=== PATIENT | male | born 1975 | race Caucasian/White ===

== ENCOUNTER 2017-04-18 09:26 | Emergency (ER) | payer OTHER, BC ==
[~2017-04-18] VITALS: Ht 185.4 cm; Wt 97.7 kg
[2017-04-18] MEDS ORDERED: ONDANSETRON 4MG/2ML VIAL (J2405) IV ONE (10:00)
[2017-04-18] MEDS ORDERED: MORPHINE 4 MG/ML 1ML SYRINGE IV ONE (10:00)
[2017-04-18] MEDS: MORPHINE 4 MG/ML 1ML SYRINGE IV PRN ×2 (10:39→11:01)
[2017-04-18] MEDS ORDERED: KETOROLAC 30 MG/ML VIAL (J1885) IV ONE (11:45)
[2017-04-18] MEDS ORDERED: NAPR500T PO (12:50)
[2017-04-18] MEDS ORDERED: NORCOTAB PO (12:50)
[2017-04-18] MEDS ORDERED: VALI5TAB PO (12:50)
[2017-04-18 13:06] VITALS: BP 147/84
== END 2017-04-18 13:09 | disposition home or self-care (01) ==
LOC: EDBD 09:26 → M ED 09:59
DX: M43.6 Torticollis (principal); G47.33 Obstructive sleep apnea (adult) (pediatric)
CPT/HCPCS: 96374; 96375; 99284; J1885; J2405; J3360

== ENCOUNTER 2021-07-23 10:34 | Emergency (ER) | payer BC, OTHER ==
[~2021-07-23] VITALS: Ht 185.4 cm; Wt 107.1 kg
[~2021-07-23 10:34] MED LIST: HYDR-3715 PO; NAPR-837 PO; VALI5TAB PO
[2021-07-23] MEDS ORDERED: BACTDSTA (10:43)
[2021-07-23] MEDS ORDERED: VANCOMYCIN HCL 2,000 MG in IV FLUID PLACE HOLDER 1 EA IV ONE (11:35)
[2021-07-23] MEDS ORDERED: ONDANSETRON 4MG/2ML VIAL IV ONE (11:35)
[2021-07-23] MEDS ORDERED: MORPHINE 4 MG/ML 1ML VIAL/SYRINGE (J2270) IV ONE (11:35)
[2021-07-23] MEDS ORDERED: NS 1,000 ML IV ONE (11:35)
[2021-07-23] MEDS ORDERED: VANCOMYCIN HCL 1,000 MG, VIAL MATE ADAPTER 1 EACH in NS 250 ML IV ONE ×6 (12:00)
[2021-07-23] MEDS ORDERED: LIDOCAINE 1% MDV 20ML VIAL SC ONE (12:05)
[2021-07-23 12:11] LABS: BASO # 0.1 10^3/uL (0.0-0.2); BASO % 0.7 % (0.0-1.0); EOS # 0.3 10^3/uL (0.0-0.5); EOS % 2.8 % (0.0-3.0); HEMATOCRIT 45.4 % (42.0-52.0); HEMOGLOBIN 15.9 g/dl (13.5-17.5); LYMPH # 1.8 10^3/uL (1.5-5.0); LYMPH % 19.3 % (24.0-44.0); MEAN CORPUSCULAR HEMOGLOBIN 33.5 pg (27.0-33.0); MEAN CORPUSCULAR VOLUME 95.8 fl (80.0-96.0); MONO # 0.9 10^3/uL (0.0-0.8); MONO % 9.1 % (2.0-8.0); NEUTROPHILS # 6.4 10^3/uL (1.5-8.5); NEUTROPHILS % 67.7 % (36.0-66.0); PLATELET COUNT, AUTOMATED 199 10^3/uL (150-450); RED BLOOD COUNT 4.74 10^6/uL (4.30-6.10); WHITE BLOOD COUNT 9.5 10^3/uL (4.0-10.0)
[2021-07-23 12:32] LABS: ERYTHROCYTE SEDIMENTATION RATE 15 mm/hr (0-15)
[2021-07-23 12:39] LABS: C REACTIVE PROTEIN QUANTITATIV 2.25 MG/DL (0.00-0.30)
[2021-07-23] MEDS ORDERED: KETOROLAC 30 MG/ML 1ML VIAL IV ONE (13:40)
[2021-07-23] MEDS ORDERED: NORCO, ANEXSIA 5/325MG TABLET (HYDROcodone/ACETAMINOPHEN) PO ONE (13:40)
[2021-07-23] MEDS ORDERED: HYDR-3713 PO (14:36)
[2021-07-23] MEDS ORDERED: DOXY1CAP62 PO (14:36)
[2021-07-23 14:53] VITALS: BP 117/77
[2021-07-23 15:04] LABS: BLOOD UREA NITROGEN 8 MG/DL (7-18); CALCIUM LEVEL 9.2 MG/DL (8.5-10.1); CARBON DIOXIDE LEVEL 23 MEQ/L (21-32); CHLORIDE LEVEL 108 MEQ/L (98-107); CREATININE FOR GFR 0.89 MG/DL (0.70-1.30); GLOMERULAR FILTRATION RATE > 60.0 (>60); GLUCOSE, FASTING 96 MG/DL (70-100); POTASSIUM SERUM 4.9 MEQ/L (3.5-5.1); SODIUM LEVEL 139 MEQ/L (136-145)
== END 2021-07-23 15:09 | disposition home or self-care (01) ==
LOC: M ED 10:34 → EEVIPCON 10:34 → M ED 15:09
DX: M71.061 Abscess of bursa, right knee (principal); L03.115 Cellulitis of right lower limb
CPT/HCPCS: 10060; 80048; 83605; 85025; 85652; 86140; 87040; 87070; 87077; 87186; 96365; 96366; 96375; 99284; J1885; J2270; J2405; J3370

== ENCOUNTER 2024-06-17 09:23 | Day surgery (SDC) | payer BC, OTHER ==
[~2024-06-17] VITALS: Ht 185.4 cm; Wt 114.8 kg
[~2024-06-17 09:23] MED LIST changes: +ATOR40TA75 PO; +BACTDSTA; +CONT1TAB PO; +DOXY-323 PO; +HYDR-3713 PO; +LISI20TA33 PO; +LISI40TA4 PO; +MOTR200T44 PO; +NS 1,000 ML IV ONE; +OMEP40CA5 PO; +TEST10GE TD; +[UNRECOGNIZED DRUG - MIXTURE] PO
[2024-06-17] MEDS ORDERED: propofoL 200 MG/20 ML VIAL As Ordered ONE (10:28)
[2024-06-17 10:44] VITALS: TEMP 98.7
[2024-06-17 11:07] VITALS: BP 126/82; O2SAT 97
== END 2024-06-17 11:14 | disposition home or self-care (01) ==
LOC: M SDC 09:23
PROVIDERS: ATTEND Surgery
DX: Z12.11 Encounter for screening for malignant neoplasm of colon (principal); K63.5 Polyp of colon; K64.9 Unspecified hemorrhoids; Z86.010 Personal history of colon polyps; G47.30 Sleep apnea, unspecified; I10 Essential (primary) hypertension; R06.83 Snoring; Z79.899 Other long term (current) drug therapy